=== PATIENT | female | born 1975 | race Caucasian/White ===

== ENCOUNTER 2023-07-11 09:45 | Outpatient (CLI) | payer BC ==
[2023-07-11 20:22] LABS: CHLAMYDIA TRACHOMATIS DNA NEGATIVE (NEGATIVE); NEISSERIA GONORRHOEAE DNA NEGATIVE (NEGATIVE)
[2023-07-11 21:13] LABS: BACTERIAL VAGINOSIS DNA NEGATIVE (NEGATIVE); CANDIDA GLABRATA DNA NEGATIVE (NEGATIVE); CANDIDA GROUP DNA NEGATIVE (NEGATIVE); CANDIDA KRUSEI DNA NEGATIVE (NEGATIVE); TRICHOMONAS VAGINALIS DNA NEGATIVE (NEGATIVE)
== END 2023-07-11 10:00 | disposition home or self-care (01) ==
LOC: LAB.N 09:45
PROVIDERS: ATTEND Family Medicine
DX: R30.0 Dysuria (principal); N89.8 Other specified noninflammatory disorders of vagina
CPT/HCPCS: 81514; 87086; 87491; 87591; 87661